=== PATIENT | female | born 1965 | race Caucasian/White ===

== ENCOUNTER → 2018-07-09 | Emergency (ER) | payer SELFPAY ==
[~2018-07-09] VITALS: Ht 165.1 cm; Wt 38.6 kg
[~2018-07-09] MED LIST: DICYCLOMINE HCL10 MG ORAL; Isovue-300 100ml vial INJ PRN; Morphine Sulfate 4mg/ml Inj (IV USE ONLY) IVP ONE; Mylanta II UD 30ml ORAL ONE; cefTRIAXone 1 GM in NS 55 ML IVPB ONE
--- NOTE | 2018-07-09 22:38 | NUR ---
ED Nurse Note: Pt ambulated to ED from home, c/o abdominal pain x1-2weeks. Pt is A&Ox4. Denies sob or chest pain
[2018-07-09 22:44] VITALS: BP 117/76
--- NOTE | 2018-07-09 23:19 | Emergency Room Report ---
History of Present Illness General Chief Complaint: Abdominal Pain Source: Patient Present Illness HPI Is a 53-year-old female with history of esophagitis. She also has previous fungal infection of her abdominal cavity that require a drainage per patient. Patient presents with abdominal cramps. Onset for the last week and half. No fever chills but no nausea no vomiting. Decreased appetite. Pain is crampy in nature. Nothing made it better. Nothing made it worse. 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; hepatitis C Review of Systems Eye: Denies: eye pain, blurred vision ENT: Denies: ear pain, nose congestion, throat swelling Respiratory: Denies: cough, shortness of breath Cardiovascular: Denies: chest pain, palpitations Gastrointestinal: Reports: abdominal pain; Denies: diarrhea, nausea, vomiting Musculoskeletal: Denies: back pain, joint pain Skin: Denies: rash Neurological: Denies: headache, numbness Endocrine: Denies: increased thirst, increased urine Hematologic/Lymphatic: Denies: easy bruising All Other Systems: negative except mentioned in HPI Physical Exam Vital Signs Date Time Temp Pulse Resp B/P (MAP) Pulse Ox O2 Delivery O2 Flow Rate FiO2 07/09/18 22:32 98.2 110 19 117/76 (90) 95 Room Air vitals with tachycardia Sp02 EP Interpretation: reviewed, normal General Appearance: no apparent distress, alert, thin, Chronically Ill Head: normocephalic, atraumatic Eyes: bilateral eye PERRL, bilateral eye EOMI ENT: hearing grossly normal, normal pharynx Neck: full range of motion, supple, no meningismus Respiratory: chest non-tender, lungs clear, normal breath sounds Cardiovascular #1: regular rate, rhythm, no murmur Gastrointestinal: normal bowel sounds, non tender, no mass, no organomegaly, no bruit, non-distended Musculoskeletal: back normal, gait/station normal, normal range of motion Psychiatric: mood/affect normal Skin: warm/dry Medical Decision Making Diagnostic Impression: Primary Impression: Abdominal pain Qualified Codes: R10.84 - Generalized abdominal pain ER Course Patient with generalize abdominal pain. No evidence of any obstruction or acute abdomen. She tolerated by mouth. Passing gas. CT scan showed possible ileus. She's feeling better now. We'll discharge home. Lab Results Impression labs unremarkable CT/MRI/US Diagnostic Results CT/MRI/US Diagnostic Results : Imaging Test Ordered: CT abdomen and pelvis Impression Read by radiologist. Mild fluid distention of small bowel loops throughout the abdomen pelvis. Possible ileus. Last Vital Signs Date Time Temp Pulse Resp B/P (MAP) Pulse Ox O2 Delivery O2 Flow Rate FiO2 07/09/18 22:44 98.2 110 19 117/76 95 Room Air Status: improved Disposition: HOME, SELF-CARE Condition: Stable Scripts Dicyclomine Hcl* (DICYCLOMINE HCL*) 10 Mg Capsule 10 MG ORAL TID, #30 CAP Prov: Jose Martin Amor MD 07/10/18 Patient Instructions: Abdominal Pain, Adult Additional Instructions: follow-up with your doctor in 7 days. Return if worse Jose Martin Amor MD Jul 09, 2018 23:18
[2018-07-09 23:27] LABS: BASOPHILS % (AUTO) 1.2 % (0.0-2.0); EOSINOPHILS % (AUTO) 1.4 % (0.0-3.0); HEMOGLOBIN 11.3 G/DL (12.0-16.0); LYMPHOCYTES % (AUTO) 28.7 % (20.0-45.0); MEAN CORPUSCULAR VOLUME 90 FL (80-99); MONOCYTES % (AUTO) 5.6 % (1.0-10.0); NEUTROPHILS % (AUTO) 63.1 % (45.0-75.0); PLATELET COUNT 602 K/UL (150-450); RED BLOOD COUNT 3.76 M/UL (4.20-5.40); RED CELL DISTRIBUTION WIDTH 14.1 % (11.6-14.8); WHITE BLOOD COUNT 10.3 K/UL (4.8-10.8)
[2018-07-09 23:30] LABS: ANION GAP 6 mmol/L (5-15); BLOOD UREA NITROGEN 13 mg/dL (7-18); CALCIUM 10.5 MG/DL (8.5-10.1); CARBON DIOXIDE 33 MMOL/L (21-32); CHLORIDE 99 MMOL/L (98-107); CREATININE 1.3 MG/DL (0.55-1.30); POTASSIUM 3.6 MMOL/L (3.5-5.1); SODIUM 138 MMOL/L (136-145)
[2018-07-09 23:32] LABS: APPEARANCE,URINE CLOUDY; BILIRUBIN, URINE NEGATIVE (NEGATIVE); GLUCOSE, URINE (UA) NEGATIVE (NEGATIVE); KETONES,URINE NEGATIVE (NEGATIVE); LEUKOCYTE ESTERASE ,URINE 2+ (NEGATIVE); NITRITE,URINE NEGATIVE (NEGATIVE); PH,URINE 8 (4.5-8.0); PROTEIN,URINE 2+ (NEGATIVE); UROBILINOGEN,URINE NORMAL MG/DL (0.0-1.0)
[2018-07-09 23:35] LABS: ALANINE AMINOTRANSFERASE 17 U/L (12-78); ALBUMIN 3.2 G/DL (3.4-5.0); ALBUMIN/GLOBULIN RATIO 0.7 (1.0-2.7); ALKALINE PHOSPHATASE 90 U/L (46-116); ASPARTATE AMINO TRANSFERASE 19 U/L (15-37); BILIRUBIN,TOTAL 0.1 MG/DL (0.2-1.0)
[2018-07-09 23:42] LABS: COLOR,URINE YELLOW
[2018-07-10 00:45] VITALS: BP 124/82
--- NOTE | 2018-07-10 00:45 | NUR ---
ED Nurse Note: Pt resting in bed with eyes closed, non-labored breathing. Pt states pain has lessened. IV fluids running, will continue to monitor
--- NOTE | 2018-07-10 09:49 | Diagnostic Imaging Report ---
Indication: Abdominal pain Technique: Continuous helical transaxial imaging of the abdomen and pelvis was obtained from the lung bases to the pubic symphysis during intravenous contrast administration. Coronal 2-D reformats were also obtained. Study obtained in a Siemens sensation [address] Automatic Exposure Control was utilized. Total Dose length Product (DLP): 341.[address] Dose Index Volume (CTDIvol): 7.68 mGy Comparison: None Findings: The study is limited because there was no oral contrast given and the patient has very little abdominal fat. There are distended loops of fluid-filled colon involving the cecum transverse colon splenic flexure. However the rectum is relatively nondistended. The sigmoid region is not seen well and is presumably nondistended. Small bowel is nondistended. Evaluation is limited. Given the dilated proximal colon and relatively nondilated sigmoid and rectum further evaluation of the colon is recommended. At least a follow-up evaluation is suggested. There is no significant free fluid or evidence of abscess. Aorta is moderately calcified. The gallbladder is contracted. There is no hydronephrosis. The liver and spleen and pancreas, both adrenal glands show no obvious anomalies. The appendix is not seen. There is a hiatal hernia present. IMPRESSION: Moderate fluid-filled colonic dilatation to about the level of the sigmoid colon. The sigmoid colon is not visualized well on this examination for reasons discussed above. The rectosigmoid colon is relatively decompressed. Further evaluation of the colon is recommended. Obstructing lesion is not excluded. Presence of liquid stool suggests gastroenteritis and diarrhea. Correlate clinically. Hiatal hernia. Atherosclerotic disease [facility] has communicated the preliminary results to the Emergency Department. Their findings are largely concordant with this report. The CT scanner at [facility] is accredited by the [employer] and the scans are performed using dose optimization techniques as appropriate to a performed exam including Automatic Exposure control.
== END | disposition home or self-care (01) ==
LOC: EMR 23:00
DX: R10.84 Generalized abdominal pain (principal); Z86.19 Personal history of other infectious and parasitic diseases; K44.9 Diaphragmatic hernia without obstruction or gangrene; I70.90 Unspecified atherosclerosis
CPT/HCPCS: 36415; 74177; 80053; 80307; 81003; 83690; 85025; 87086; 96361; 96365; 96375; 99284; J0696; Q9967; J2405